=== PATIENT | female | born 1940 | race Caucasian/White ===

== ENCOUNTER 2017-05-04 08:27 | Outpatient (CLI) | payer MEDICARE ==
[2017-05-04] MEDS ORDERED: Iopamidol 370 76% 100 ML VIAL ONE (10:00)
== END 2017-05-04 08:28 | disposition home or self-care (01) ==
LOC: BICCT 08:27
PROVIDERS: ATTEND Radiology Radiation Oncology
DX: C34.90 Malignant neoplasm of unspecified part of unspecified bronchus or lung (principal); J44.9 Chronic obstructive pulmonary disease, unspecified; I25.10 Atherosclerotic heart disease of native coronary artery without angina pectoris; Z98.890 Other specified postprocedural states
CPT/HCPCS: 71260

== ENCOUNTER 2018-05-19 07:25 | Outpatient (CLI) | payer MEDICARE ==
--- NOTE | 2018-05-19 09:37 | CT ---
CT OF THE CHEST WITH CONTRAST: Date: 05/19/18 COMPARISON: 05/04/17, 08/26/14. HISTORY: Lung cancer status post radiation therapy. Restaging exam. TECHNIQUE: Multiple contiguous axial images were obtained in a CT of the chest with contrast. Coronal reformats were performed. FINDINGS: Emphysematous changes are seen in the lungs. There is scarring in the right lung with associated volu me loss. There is right apical thickening. When compared to the prior examination, the apical thicken ing may have slightly worsened. This measures 1.8 cm in thickness. This is definitely increased in ickness compared to the exam from 2015. A calcified granuloma is seen in the left lung base. No suspicious noncalcified nodules are seen. The heart is normal in size. The patient is status post CABG. No hilar or mediastinal lymphadenopathy are seen. Degenerative changes are seen in the spine. The kidneys are lobulated in appearance. The patient is s tatus post cholecystectomy. The other visualized subdiaphragmatic structures are unremarkable. IMPRESSION: Slight increased apical thickening in the right lung apex. This may represent post radiation therapy change. Recurrent disease in the right apex cannot be entirely excluded. A PET CT may be necessary to evaluate for hypermetabolic activity in this region. POS: KENYA
[2018-05-19] MEDS ORDERED: ISOVUE-370 76%-LOCM 1 ML ONE (13:36)
== END 2018-05-19 07:26 | disposition home or self-care (01) ==
LOC: BICCT 07:25
PROVIDERS: ATTEND Radiology Radiation Oncology
DX: C34.90 Malignant neoplasm of unspecified part of unspecified bronchus or lung (principal); Z92.3 Personal history of irradiation
CPT/HCPCS: 71260; 82565; Q9966

== ENCOUNTER 2019-06-26 07:31 | Outpatient (CLI) | payer MEDICARE ==
--- NOTE | 2019-06-26 10:36 | CT ---
CT CHEST WITH IV COTNRAST: DATE: 06/26/2019. PROVIDED CLINICAL HISTORY: History of lung cancer. FINDINGS: Comparison 05/19/2018. The heart, pericardium, and great vessels demonstrate no significant interval change with respect to prior. There is no evidence for thoracic lymph node enlargement. Right apical pleural parenchymal opacity appears not significantly changed with respect to prior stud y. There has been interval development of a lingular pulmonary nodule measuring about 1.4 x 1.1 cm i n greatest transverse dimensions. Central lobular emphysematous changes are again seen. Scattered a reas of ground-glass attenuation are noted, primarily within the superior segments of both lower lobe s. Probable secretions noted within the right main bronchus. The airway appears of normal caliber and o therwise patent. There is no pleural fluid or pneumothorax apparent. The visualized portions of the upper abdomen appear unchanged with respect to the prior study. The osseous structures demonstrate no concerning lytic or blastic lesions. IMPRESSION: 1. Interval development of 1.4 cm lingular pulmonary nodule suspicious for malignancy. 2. Apparent ground-glass attenuation involving superior segments of each lower lobe. This could ref lect an infectious or inflammatory pneumonitis. Mosaic perfusion could also produce this appearance. Similar changes were seen on the prior CT examination, favoring mosaic perfusion. 3. No additional significant interval change with respect to the prior examination is apparent. POS: TISH
[2019-06-26] MEDS ORDERED: Iopamidol-370 76% 500 ML 1 ML ONE (11:49)
== END 2019-06-26 07:32 | disposition home or self-care (01) ==
LOC: BICCT 07:31
PROVIDERS: ATTEND Radiology Radiation Oncology
DX: C34.90 Malignant neoplasm of unspecified part of unspecified bronchus or lung (principal); C77.1 Secondary and unspecified malignant neoplasm of intrathoracic lymph nodes; R91.1 Solitary pulmonary nodule
CPT/HCPCS: 71260; 82565

== ENCOUNTER 2019-09-28 07:31 | Outpatient (CLI) | payer MEDICARE ==
--- NOTE | 2019-09-28 09:57 | CT ---
CT OF THE THORAX WITH IV CONTRAST: INDICATION: Followup pulmonary nodule. COMPARISON: CT of the thorax dated 06/26/2019, 05/19/2018, and 05/14/2017. FINDINGS: The pleural parenchymal scarring involving the right lung apex is largely stable with associated trac tion bronchiectasis. Severe emphysema is similar-appearing. The irregular, semisolid pulmonary nodu le within the anterior aspect of the lingula is relatively stable in size to the most recent comparis on dated 06/26/2019. The pulmonary nodule on image 47 of series 2 measures 1.5 x 1.1 cm where previou sly it measured 1.4 x 1.1 cm. The areas of ground-glass opacity involving the superior segment of th e right and left lower lobes is relatively stable. No new pulmonary nodule is identified. There is a calcified granuloma of the left lower lobe. No pleural effusion is evident. Mild ectasia of the a scending aorta is similar-appearing measuring 3.5 cm. Post CABG change is similar-appearing. There is a 1.1 cm right tracheobronchial lymph node that is relatively stable. The visualized upper abdome n reveals no acute abnormality. There are stable ununited right lateral 6th and 7th rib fractures. There is likely post-radiation os teitis involving the right upper chest wall. There is diffuse osteopenia. There is scattered degene rative change. Small sclerotic lesion involving T1 appears similar-appearing. IMPRESSION: 1. Stable lingular semisolid pulmonary nodule. This nodule has progressed in size over the comparis on examinations but is relatively stable since the most recent 3 months ago. However, this lesion re sylvia concerning for a slowly evolving malignancy. PET CT is recommended for additional characteriza tion. 2. Persistent ground-glass opacities within the superior segment of both upper lobes and a backgroun d of severe emphysema is suspicious for changes of bronchiolitis and a mild pneumonitis. 3. Stable pleural parenchymal scarring of the right lung apex with associated traction bronchiectasi s. 4. Findings of prior granulomatous disease. 5. Stable sclerotic lesion of the T1 vertebral level most suspicious for a bone island. POS: BH
[2019-09-28] MEDS ORDERED: Iopamidol-370 76% 500 ML 1 ML ONE (11:31)
== END 2019-09-28 07:32 | disposition home or self-care (01) ==
LOC: BICCT 07:31
PROVIDERS: ATTEND Radiology Radiation Oncology
DX: R91.1 Solitary pulmonary nodule (principal); Z85.118 Personal history of other malignant neoplasm of bronchus and lung; J98.4 Other disorders of lung; M89.9 Disorder of bone, unspecified
CPT/HCPCS: 71260; 82565

== ENCOUNTER 2020-02-07 07:33 | Outpatient (CLI) | payer MEDICARE ==
--- NOTE | 2020-02-07 10:46 | CT ---
CT OF THE CHEST WITHOUT CONTRAST: Date: 02/07/2020 HISTORY: History of lung cancer. Status post removal of part of the right lung and radiation therapy. History of breast cancer and bilateral mastectomy. Developing left pulmonary nodule. COMPARISON: CT chest dated 09/28/2019, 06/26/2019, and 05/19/2018. TECHNIQUE: Multiple contiguous axial images were obtained in a CT of the chest without contrast. Sagittal and co eden reformats were performed. FINDINGS: The heart is normal in size. Calcifications are seen in the aorta and coronal arteries. The patient i s status post CABG. There is a slightly prominent pretracheal lymph node measuring 1.2 cm in short ax is. This is stable compared to the prior examination. Calcified left hilar and mediastinal lymph node s are seen. Emphysematous changes are seen in the lungs. There is stable scarring in the right apex with peripher al pleural thickening. These findings in the right apex remain stable compared to exams dating back 2018 and may represent post radiation therapy and postsurgical change. There is an enlarging nodule in the lingula. This currently measures 1.4 x 1.2 x 1.5 cm in size. This nodule was initially a semisolid nodule, but now has become more solid in appearance. There are calc ified granulomas in the bilateral lower lobes. No pneumothorax or pleural effusions are seen. The patient is status post cholecystectomy. The kidneys are lobulated in appearance. The other visual ized subdiaphragmatic structures are unremarkable. Degenerative changes are seen in the spine. There are remote right rib fractures and changes in the r ibs in the right apex which may represent post radiation therapy change. The patient is status post b ilateral mastectomy. IMPRESSION: 1. Continued enlargement of lingular nodule. This initially was semisolid and now has become more so lid in appearance. This is suspicious for malignancy. A PET/CT should be performed to evaluate for hy permetabolic activity. 2. Stable changes in the right lung apex likely represent postsurgical and post radiation therapy ch anges. 3. Slightly prominent pretracheal lymph node remains stable. POS: EAA
== END 2020-02-07 07:34 | disposition home or self-care (01) ==
LOC: BICCT 07:33
PROVIDERS: ATTEND Radiology Radiation Oncology
DX: R91.1 Solitary pulmonary nodule (principal); R59.0 Localized enlarged lymph nodes; Z85.118 Personal history of other malignant neoplasm of bronchus and lung
CPT/HCPCS: 71250

== ENCOUNTER 2020-03-20 07:31 | Outpatient (CLI) | payer MEDICARE ==
--- NOTE | 2020-03-20 09:45 | PET ---
Radionucleotide PET scan with CT attenuation correction HISTORY: Right lung cancer. Left lung nodule. COMPARISON: CT chest 02/07/2020. PET scan 01/30/2013. FINDINGS: Increased radiotracer uptake associated with the soft tissue density nodule at the anterior aspect of the left upper lobe shows max SUV 12.1. The nodule has enlarged slightly since the most recent CT, measuring up to 1.6 cm x 1.0 cm greatest diameters on the axial images. No pathologic activity is associated with the precarinal lymph node that is upper limits of normal in size. Slightly increased uptake associated with the posterior lymphoid tissue immediately superior to the l eft side of the larynx is noted without focal mass. Likely reactive. No distant foci of pathologic radiotracer uptake. Nondiagnostic CT attenuation correction images show scarring at the lateral aspect of the right lung apex to be stable. There is fusiform ectasia of the lower abdominal aorta measuring up to 2.8 cm. Calcified fibroids noted within the uterus. IMPRESSION : Enlarging left upper lobe nodule is hypermetabolic, consistent with neoplasm. No evidence of mediasti nal lymph node involvement or distant metastasis. The nodule would be amenable to percutaneous biopsy if needed.
== END 2020-03-20 07:32 | disposition home or self-care (01) ==
LOC: PET 07:31
PROVIDERS: ATTEND Internal Medicine Critical Care Medicine
DX: C34.90 Malignant neoplasm of unspecified part of unspecified bronchus or lung (principal); R91.1 Solitary pulmonary nodule
CPT/HCPCS: 78815; A9552

== ENCOUNTER 2020-04-30 22:20 | Inpatient (IN) | payer MEDICARE ==
[2020-05-01] MEDS ORDERED: guaiFENesin ER 600 MG TAB PO SCH (02:30)
[2020-05-01] MEDS ORDERED: Ondansetron PF 4 MG/2 ML Vial IVP PRN (03:02)
[2020-05-01] MEDS ORDERED: Ondansetron ODT 4 MG TAB PO PRN (03:02)
[2020-05-01] MEDS ORDERED: Acetaminophen 325 MG TAB PO PRN (03:02)
[2020-05-01] MEDS ORDERED: HYDROcodone/Acetaminophen 5/325 mg Tablet PO PRN (03:02)
[2020-05-01 04:54] LABS: #Lymphocytes 0.4 thou/uL (1.20-3.40); #Monocytes 0.1 thou/uL (0.11-0.59); #Neutrophils 3.1 thou/uL (1.40-6.50); %Eosinophils 0.7 % (0.0-10.0); %Monocytes 1.4 % (0.0-10.0); %Neutrophils 85.8 % (42.0-75.0); Hemoglobin 16.6 g/dL (12.0-16.0); Mean Corpuscular HGB CONC 32.6 g/dL (32.0-36.0); Mean Corpuscular Hemoglobin 32.8 pg (27.0-31.0); Mean Platelet Volume 7.9 fL (7.4-10.4); Platelet Count 229 thou/uL (130-400); RBC Distribution Width 12.6 % (11.5-14.5); Red Blood Cell (RBC) Count 5.06 mill/uL (4.20-5.40); White Blood Cell (WBC) Count 3.6 thou/uL (4.8-10.8)
[2020-05-01 05:13] LABS: Anion Gap 16 mmol/L (10-20); BUN (Urea Nitrogen) 16 mg/dL (9.8-20.1); Calc. Creatinine Clearance 41 mL/min (70-130); Carbon Dioxide 23 mmol/L (23-31); Chloride 98 mmol/L (98-107); Glucose 122 mg/dL (83-110); Potassium 4.4 mmol/L (3.5-5.1); Sodium 133 mmol/L (136-145)
[2020-05-01] MEDS: Enoxaparin Sodium 40 MG/0.4 ML SYRINGE SC SCH (11:16)
[2020-05-01] MEDS: traMADol HCl 50 MG TAB PO PRN ×2 (11:17→21:41)
[2020-05-01] MEDS: Gabapentin 300 MG CAP PO SCH ×2 (11:25→21:43)
[2020-05-01] MEDS ORDERED: Rivaroxaban 15 MG TAB PO SCH (17:00)
[2020-05-01] MEDS: Albuterol 200 PUFF (6.7GM INHALER) INH SCH (18:30)
[2020-05-01] MEDS: Budesonide 0.5 MG/2 ML NEB NEB SCH (19:28)
[2020-05-01] MEDS ORDERED: Non-Formulary Item 1 EACH (Albuterol Sulfate [Proair Digihaler] 90 MCG Aer.Pw.Bas) IH SCH (21:00)
[2020-05-02] MEDS: Albuterol 200 PUFF (6.7GM INHALER) INH SCH ×2 (07:15→19:44)
[2020-05-02] MEDS: Budesonide 0.5 MG/2 ML NEB NEB SCH ×2 (07:15→19:33)
[2020-05-02 08:06] VITALS: BMI 23.9
[2020-05-02] MEDS: Aspirin 81 mg Enteric Coated Tablet PO SCH (09:00)
[2020-05-02] MEDS ORDERED: Levothyroxine Sodium 25 MCG TAB PO SCH (09:00)
[2020-05-02] MEDS: Gabapentin 300 MG CAP PO SCH ×2 (09:01→20:59)
[2020-05-02] MEDS: traMADol HCl 50 MG TAB PO PRN ×2 (09:02→21:02)
[2020-05-02] MEDS: Enoxaparin Sodium 40 MG/0.4 ML SYRINGE SC SCH (09:03)
[2020-05-02] MEDS ORDERED: Clopidogrel Bisulfate 75 MG TAB PO SCH (19:45)
[2020-05-03] MEDS: Levothyroxine Sodium 25 MCG TAB PO SCH (05:11)
[2020-05-03] MEDS: Budesonide 0.5 MG/2 ML NEB NEB SCH ×2 (08:07→19:36)
[2020-05-03] MEDS: Albuterol 200 PUFF (6.7GM INHALER) INH SCH ×2 (08:07→19:38)
[2020-05-03] MEDS ORDERED: Clopidogrel Bisulfate 75 MG TAB PO SCH ×2 (09:00→19:15)
[2020-05-03 09:20] LABS: #Eosinphils 0.3 thou/uL (0.0-0.7); #Lymphocytes 1.1 thou/uL (1.20-3.40); #Monocytes 0.7 thou/uL (0.11-0.59); #Neutrophils 3.9 thou/uL (1.40-6.50); %Basophils 0.8 % (0.0-1.0); %Eosinophils 5.2 % (0.0-10.0); %Lymphocytes 18.8 % (21.0-51.0); %Monocytes 11.5 % (0.0-10.0); %Neutrophils 63.7 % (42.0-75.0); Hemoglobin 17.6 g/dL (12.0-16.0); Mean Corpuscular HGB CONC 33.3 g/dL (32.0-36.0); Mean Corpuscular Hemoglobin 33.5 pg (27.0-31.0); Mean Platelet Volume 8.2 fL (7.4-10.4); Platelet Count 223 thou/uL (130-400); RBC Distribution Width 12.7 % (11.5-14.5); Red Blood Cell (RBC) Count 5.24 mill/uL (4.20-5.40); White Blood Cell (WBC) Count 6.1 thou/uL (4.8-10.8)
[2020-05-03 09:27] LABS: Anion Gap 16 mmol/L (10-20); BUN (Urea Nitrogen) 20 mg/dL (9.8-20.1); Calc. Creatinine Clearance 38 mL/min (70-130); Calcium 9.2 mg/dL (7.8-10.44); Carbon Dioxide 27 mmol/L (23-31); Chloride 98 mmol/L (98-107); Glucose 90 mg/dL (83-110); Potassium 4.1 mmol/L (3.5-5.1); Sodium 137 mmol/L (136-145)
[2020-05-03] MEDS: traMADol HCl 50 MG TAB PO PRN ×2 (09:35→20:55)
[2020-05-03] MEDS: Aspirin 81 mg Enteric Coated Tablet PO SCH (09:36)
[2020-05-03] MEDS: Gabapentin 300 MG CAP PO SCH ×2 (09:36→20:54)
[2020-05-03] MEDS: Enoxaparin Sodium 40 MG/0.4 ML SYRINGE SC SCH (09:38)
[2020-05-03] MEDS ORDERED: Cefdinir 300 MG CAP PO SCH (13:15)
[2020-05-03] MEDS ORDERED: Aspirin 81 mg Enteric Coated Tablet PO SCH (19:15)
[2020-05-04] MEDS: Levothyroxine Sodium 25 MCG TAB PO SCH (06:00)
[2020-05-04] MEDS: Albuterol 200 PUFF (6.7GM INHALER) INH SCH ×2 (07:28→19:22)
[2020-05-04] MEDS: Budesonide 0.5 MG/2 ML NEB NEB SCH ×2 (07:29→19:27)
[2020-05-04] MEDS ORDERED: Cefdinir 300 MG CAP PO SCH (09:00)
[2020-05-04] MEDS ORDERED: Clopidogrel Bisulfate 75 MG TAB PO SCH (09:00)
[2020-05-04] MEDS ORDERED: Aspirin 81 mg Enteric Coated Tablet PO SCH (09:00)
[2020-05-04] MEDS: Gabapentin 300 MG CAP PO SCH (09:20)
[2020-05-04] MEDS: methylPREDNISolone Sod Succ/PF 125 MG/2 ML VIAL IVP SCH (09:24)
[2020-05-04] MEDS: traMADol HCl 50 MG TAB PO PRN (09:24)
[2020-05-04] MEDS: Enoxaparin Sodium 40 MG/0.4 ML SYRINGE SC SCH ×2 (09:25→09:26)
[2020-05-04 09:41] LABS: Hemoglobin 17.2 g/dL (12.0-16.0); Platelet Count 211 thou/uL (130-400)
[2020-05-04] MEDS ORDERED: diphenhydrAMINE 50 MG/ML VIAL IVP SCH (11:15)
[2020-05-04] MEDS: Clopidogrel Bisulfate 75 MG TAB PO SCH (17:36)
[2020-05-04] MEDS: Aspirin 81 mg Enteric Coated Tablet PO SCH (17:36)
[2020-05-04] MEDS ORDERED: Melatonin 3 MG TAB PO PRN (20:19)
[2020-05-04] MEDS ORDERED: diphenhydrAMINE 25 MG CAP PO SCH (20:30)
[2020-05-04] MEDS: Transdermal Patch Removal TOP SCH (21:42)
[2020-05-05] MEDS ORDERED: Guaifenesin DM 100-10/5 ML UDCUP PO PRN (03:43)
[2020-05-05] MEDS: Levothyroxine Sodium 25 MCG TAB PO SCH (04:57)
[2020-05-05] MEDS: Enoxaparin Sodium 40 MG/0.4 ML SYRINGE SC SCH (08:11)
[2020-05-05] MEDS: Budesonide 0.5 MG/2 ML NEB NEB SCH ×2 (08:14→18:15)
[2020-05-05] MEDS: Albuterol 200 PUFF (6.7GM INHALER) INH SCH ×2 (08:17→18:15)
[2020-05-05] MEDS: methylPREDNISolone Sod Succ/PF 125 MG/2 ML VIAL IVP SCH (09:04)
[2020-05-05] MEDS ORDERED: traMADol HCl 50 MG TAB PO PRN (09:15)
[2020-05-05] MEDS: Gabapentin 300 MG CAP PO SCH ×2 (09:31→19:45)
[2020-05-05] MEDS: Lidocaine 5% Patch TD SCH (15:29)
[2020-05-05] MEDS: Clopidogrel Bisulfate 75 MG TAB PO SCH (19:44)
[2020-05-05] MEDS: Aspirin 81 mg Enteric Coated Tablet PO SCH (19:44)
[2020-05-06] MEDS: Transdermal Patch Removal TOP SCH (00:30)
[2020-05-06] MEDS: Levothyroxine Sodium 25 MCG TAB PO SCH (05:26)
[2020-05-06] MEDS: Budesonide 0.5 MG/2 ML NEB NEB SCH (08:07)
[2020-05-06] MEDS: Albuterol 200 PUFF (6.7GM INHALER) INH SCH (08:07)
[2020-05-06 08:43] VITALS: BP 135/70; TEMP 97.4
[2020-05-06] MEDS: Gabapentin 300 MG CAP PO SCH (08:57)
[2020-05-06] MEDS: Enoxaparin Sodium 40 MG/0.4 ML SYRINGE SC SCH (08:58)
[2020-05-06] MEDS: methylPREDNISolone Sod Succ/PF 125 MG/2 ML VIAL IVP SCH (09:01)
[2020-05-06] MEDS: Lidocaine 5% Patch TD SCH (12:38)
== END 2020-05-06 14:20 | disposition home or self-care (01) | DRG 190 ==
LOC: 2NO 22:20 → ONC 05-02 16:50
PROVIDERS: ADMIT Student in an Organized Health Care Education/Training Program; ATTEND Emergency Medicine
DX: J44.1 Chronic obstructive pulmonary disease with (acute) exacerbation (principal); J96.01 Acute respiratory failure with hypoxia; C34.12 Malignant neoplasm of upper lobe, left bronchus or lung; Z20.822 Contact with and (suspected) exposure to COVID-19; I25.10 Atherosclerotic heart disease of native coronary artery without angina pectoris; F17.210 Nicotine dependence, cigarettes, uncomplicated; N18.30 Chronic kidney disease, stage 3 unspecified; I12.9 Hypertensive chronic kidney disease with stage 1 through stage 4 chronic kidney disease, or unspecified chronic kidney disease; I80.8 Phlebitis and thrombophlebitis of other sites; T36.1X5A Adverse effect of cephalosporins and other beta-lactam antibiotics, initial encounter; Z79.899 Other long term (current) drug therapy; Z79.82 Long term (current) use of aspirin; Z79.890 Hormone replacement therapy; Z95.1 Presence of aortocoronary bypass graft; Z79.51 Long term (current) use of inhaled steroids; Z79.01 Long term (current) use of anticoagulants; Z90.13 Acquired absence of bilateral breasts and nipples; Z90.2 Acquired absence of lung [part of]; Z85.3 Personal history of malignant neoplasm of breast
CPT/HCPCS: 36415; 77336; 77386; 77417; 80048; 82565; 85014; 85018; 85025; 85049; 94640; J1200; J1650; J2930; J7620; J7626; Q0163

== ENCOUNTER 2020-11-20 07:28 | Outpatient (CLI) | payer MEDICARE | END 2020-11-20 07:29 | disposition home or self-care (01) | LOC: BICCT 07:28 | PROVIDERS: ATTEND Radiology Radiation Oncology | DX: C34.12 Malignant neoplasm of upper lobe, left bronchus or lung (principal); R91.1 Solitary pulmonary nodule; J98.4 Other disorders of lung; I25.10 Atherosclerotic heart disease of native coronary artery without angina pectoris | CPT/HCPCS: 71260; 82565 ==

== ENCOUNTER 2021-05-22 11:22 | Inpatient (IN) | payer MEDICARE ==
[2021-05-22 12:13] LABS: #Lymphocytes 0.1 thou/uL (1.20-3.40); #Monocytes 1.3 thou/uL (0.11-0.59); #Neutrophils 12.9 thou/uL (1.40-6.50); %Eosinophils 0.2 % (0.0-10.0); %Lymphocytes 0.9 % (21.0-51.0); %Monocytes 8.8 % (0.0-10.0); %Neutrophils 90.1 % (42.0-75.0); Hemoglobin 15.7 g/dL (12.0-16.0); Mean Corpuscular HGB CONC 31.4 g/dL (32.0-36.0); Mean Corpuscular Hemoglobin 31.3 pg (27.0-31.0); Mean Corpuscular Volume 99.7 fL (78.0-98.0); Mean Platelet Volume 7.3 fL (7.4-10.4); Platelet Count 226 thou/uL (130-400); RBC Distribution Width 13.4 % (11.5-14.5); Red Blood Cell (RBC) Count 5.02 mill/uL (4.20-5.40); White Blood Cell (WBC) Count 14.3 thou/uL (4.8-10.8)
[2021-05-22] MEDS ORDERED: Morphine 4 MG/ML VIAL ONE (12:29)
[2021-05-22 12:35] LABS: ALT (SGPT) 30 U/L (8-55); AST (SGOT) 26 U/L (5-34); Albumin 3.5 g/dL (3.4-4.8); Alkaline Phosphatase 69 U/L (40-110); BUN (Urea Nitrogen) 37 mg/dL (9.8-20.1); Bilirubin, Total 1.1 mg/dL (0.2-1.2); Calc. Creatinine Clearance 0 mL/min (70-130); Calcium 9.6 mg/dL (7.8-10.44); Globulin 2.5 g/dL (2.4-3.5); Glucose 105 mg/dL (83-110)
[2021-05-22 12:45] LABS: Anion Gap 17 mmol/L (10-20); Carbon Dioxide 34 mmol/L (23-31); Chloride 88 mmol/L (98-107); Potassium 4.9 mmol/L (3.5-5.1); Sodium 134 mmol/L (136-145)
[2021-05-22] MEDS ORDERED: Ondansetron PF 4 MG/2 ML Vial IVP PRN (17:45)
[2021-05-22] MEDS ORDERED: Ondansetron ODT 4 MG TAB SL PRN (17:45)
[2021-05-22] MEDS ORDERED: Senokot S 8.6-50 MG TAB PO PRN (18:07)
[2021-05-22] MEDS ORDERED: HYDROcodone/Acetaminophen 5/325 mg Tablet PO PRN (18:16)
[2021-05-22] MEDS ORDERED: Albuterol Sulfate 2.5 mg/3 ml Neb NEB PRN (19:03)
[2021-05-22 20:11] LABS: SARS-CoV-2 NAA Rapid Test Not Detected (NotDetected)
[2021-05-22 20:49] VITALS: BMI 30.7
[2021-05-22] MEDS: Enoxaparin Sodium 40 MG/0.4 ML SYRINGE SC SCH (21:55)
[2021-05-22] MEDS: Cefepime 1 GM in Sodium Chloride 0.9% 100 ML IVPB SCH (21:56)
[2021-05-22] MEDS: Sodium Chloride 0.9% 1,000 ML IV SCH (21:57)
[2021-05-22] MEDS: Famotidine 20 MG TAB PO SCH (21:57)
[2021-05-22] MEDS ORDERED: Oxymetazoline HCl 0.05% (30 ML BOT) NS PRN (22:35)
[2021-05-22] MEDS: traMADol HCl 50 MG TAB PO PRN (22:49)
[2021-05-23 05:15] LABS: Bacteria/HPF None Seen HPF (None Seen); Bilirubin Negative (Negative); Blood, Urine Negative (Negative); Clarity Clear (Clear); Glucose, Urine (Dipstick) Normal (Negative); Ketone, Urine Negative (Negative); Leukocyte Negative Leu/uL (Negative); Nitrite Negative (Negative); Protein, Urine (Dipstick) 10 mg/dL (Neg-Trace); RBC/HPF 0-3 HPF (0-3); Specific Gravity, Urine 1.029 (1.002-1.036); Squamous Epithelial 0-3 HPF (0-3); Urobilinogen Normal mg/dL (Less than 2); WBC/HPF 0-3 HPF (0-3)
[2021-05-23 07:19] LABS: BUN (Urea Nitrogen) 38 mg/dL (9.8-20.1); Calc. Creatinine Clearance 73 mL/min (70-130); Calcium 9.1 mg/dL (7.8-10.44); Glucose 106 mg/dL (83-110)
[2021-05-23 07:25] LABS: Hemoglobin 15.4 g/dL (12.0-16.0); Mean Corpuscular HGB CONC 30.9 g/dL (32.0-36.0); Mean Corpuscular Hemoglobin 31.1 pg (27.0-31.0); Mean Platelet Volume 7.8 fL (7.4-10.4); Platelet Count 190 thou/uL (130-400); RBC Distribution Width 13.8 % (11.5-14.5); Red Blood Cell (RBC) Count 4.96 mill/uL (4.20-5.40)
[2021-05-23 07:28] LABS: Anion Gap 16 mmol/L (10-20); Carbon Dioxide 32 mmol/L (23-31); Chloride 93 mmol/L (98-107); Potassium 5.1 mmol/L (3.5-5.1); Sodium 136 mmol/L (136-145)
[2021-05-23] MEDS: Cefepime 1 GM in Sodium Chloride 0.9% 100 ML IVPB SCH ×2 (08:33→19:36)
[2021-05-23] MEDS: Aspirin 81 mg Enteric Coated Tablet PO SCH (08:34)
[2021-05-23] MEDS: Famotidine 20 MG TAB PO SCH (08:34)
[2021-05-23 08:39] LABS: Band 2 % (5-11); MDiff Complete? YES; Macrocytosis SLIGHT = 6-15 cells (100X) (0-5/hpf); Monocytes 6 % (0-10); Neutrophil 92 % (42-75); Platelet Morphology Comment Appears Adequate
[2021-05-23] MEDS: traMADol HCl 50 MG TAB PO PRN ×3 (08:51→19:34)
[2021-05-23] MEDS ORDERED: Morphine 4 MG/ML VIAL ONE (10:26)
[2021-05-23] MEDS ORDERED: Morphine 4 MG/ML VIAL SLOW IVP PRN (11:06)
[2021-05-23] MEDS ORDERED: Magnevist 469MG/ML 20 ML VIAL ONE ×2 (11:48)
[2021-05-23] MEDS: Sodium Chloride 0.9% 1,000 ML IV SCH (14:01)
[2021-05-23] MEDS: Enoxaparin Sodium 40 MG/0.4 ML SYRINGE SC SCH (19:37)
[2021-05-23] MEDS ORDERED: Gabapentin 300 MG CAP PO SCH ×2 (21:00)
[2021-05-23] MEDS ORDERED: Ketorolac Tromethamine 30 MG/ML VIAL IVP SCH (23:00)
[2021-05-24] MEDS: traMADol HCl 50 MG TAB PO PRN ×4 (00:13→16:15)
[2021-05-24 07:09] LABS: #Lymphocytes 0.1 thou/uL (1.20-3.40); #Neutrophils 9.3 thou/uL (1.40-6.50); %Basophils 0.2 % (0.0-1.0); %Eosinophils 0.2 % (0.0-10.0); %Lymphocytes 1.3 % (21.0-51.0); %Monocytes 9.1 % (0.0-10.0); %Neutrophils 89.2 % (42.0-75.0); Hemoglobin 14.6 g/dL (12.0-16.0); Mean Corpuscular HGB CONC 30.9 g/dL (32.0-36.0); Mean Corpuscular Hemoglobin 31.2 pg (27.0-31.0); Platelet Count 148 thou/uL (130-400); RBC Distribution Width 13.8 % (11.5-14.5); Red Blood Cell (RBC) Count 4.68 mill/uL (4.20-5.40); White Blood Cell (WBC) Count 10.4 thou/uL (4.8-10.8)
[2021-05-24 07:28] LABS: Anion Gap 10 mmol/L (10-20); BUN (Urea Nitrogen) 36 mg/dL (9.8-20.1); Calc. Creatinine Clearance 74 mL/min (70-130); Carbon Dioxide 34 mmol/L (23-31); Chloride 96 mmol/L (98-107); Glucose 82 mg/dL (83-110); Potassium 5.3 mmol/L (3.5-5.1); Sodium 135 mmol/L (136-145)
[2021-05-24] MEDS: Cefepime 1 GM in Sodium Chloride 0.9% 100 ML IVPB SCH ×2 (08:33→20:05)
[2021-05-24] MEDS: Gabapentin 300 MG CAP PO SCH ×3 (08:36→20:06)
[2021-05-24] MEDS: Aspirin 81 mg Enteric Coated Tablet PO SCH (08:36)
[2021-05-24] MEDS: Cyclobenzaprine 10 MG TAB PO SCH ×2 (08:43→20:06)
[2021-05-24] MEDS ORDERED: fentaNYL 75 mcg/hour Patch TD SCH (09:00)
[2021-05-24] MEDS: Enoxaparin Sodium 40 MG/0.4 ML SYRINGE SC SCH (20:05)
[2021-05-24] MEDS: Benzonatate 100 MG CAP PO PRN (20:09)
[2021-05-25 06:28] LABS: #Eosinphils 0.2 thou/uL (0.0-0.7); #Lymphocytes 0.2 thou/uL (1.20-3.40); #Monocytes 0.7 thou/uL (0.11-0.59); #Neutrophils 9.8 thou/uL (1.40-6.50); %Basophils 0.1 % (0.0-1.0); %Lymphocytes 1.3 % (21.0-51.0); %Monocytes 6.2 % (0.0-10.0); %Neutrophils 90.3 % (42.0-75.0); Hemoglobin 15.5 g/dL (12.0-16.0); Mean Corpuscular HGB CONC 31.8 g/dL (32.0-36.0); Mean Corpuscular Hemoglobin 32.2 pg (27.0-31.0); Mean Platelet Volume 7.9 fL (7.4-10.4); Platelet Count 124 thou/uL (130-400); RBC Distribution Width 13.7 % (11.5-14.5); Red Blood Cell (RBC) Count 4.81 mill/uL (4.20-5.40); White Blood Cell (WBC) Count 10.8 thou/uL (4.8-10.8)
[2021-05-25 06:51] LABS: Anion Gap 12 mmol/L (10-20); BUN (Urea Nitrogen) 34 mg/dL (9.8-20.1); Calc. Creatinine Clearance 72 mL/min (70-130); Calcium 9.1 mg/dL (7.8-10.44); Carbon Dioxide 36 mmol/L (23-31); Chloride 94 mmol/L (98-107); Glucose 80 mg/dL (83-110); Potassium 4.7 mmol/L (3.5-5.1); Sodium 137 mmol/L (136-145)
[2021-05-25] MEDS: Cyclobenzaprine 10 MG TAB PO SCH (08:43)
[2021-05-25] MEDS: Aspirin 81 mg Enteric Coated Tablet PO SCH ×2 (08:44→09:10)
[2021-05-25] MEDS: Gabapentin 300 MG CAP PO SCH (08:44)
[2021-05-25] MEDS: Cefepime 1 GM in Sodium Chloride 0.9% 100 ML IVPB SCH (08:47)
[2021-05-25] MEDS ORDERED: Magnevist 469MG/ML 20 ML VIAL ONE (09:29)
[2021-05-25] MEDS ORDERED: Gabapentin 100 MG CAP PO SCH (15:00)
[2021-05-25] MEDS ORDERED: Cyclobenzaprine 10 MG TAB PO SCH (16:00)
[2021-05-25] MEDS ORDERED: fentaNYL 50 mcg/hour Patch TD SCH (18:00)
[2021-05-25] MEDS: Enoxaparin Sodium 40 MG/0.4 ML SYRINGE SC SCH (21:42)
[2021-05-26] MEDS: Aspirin 81 mg Enteric Coated Tablet PO SCH (08:33)
[2021-05-26] MEDS: Enoxaparin Sodium 40 MG/0.4 ML SYRINGE SC SCH (21:00)
[2021-05-26] MEDS: Acetaminophen 325 MG TAB PO PRN (21:08)
[2021-05-26] MEDS: Benzonatate 100 MG CAP PO PRN (21:08)
[2021-05-27] MEDS: Aspirin 81 mg Enteric Coated Tablet PO SCH (08:26)
[2021-05-27] MEDS: Acetaminophen 325 MG TAB PO PRN ×2 (11:17→16:53)
[2021-05-27] MEDS: Enoxaparin Sodium 40 MG/0.4 ML SYRINGE SC SCH (21:29)
[2021-05-27] MEDS ORDERED: Melatonin 3 MG TAB PO PRN (22:37)
[2021-05-27] MEDS ORDERED: hydrOXYzine 10 MG TAB PO PRN (22:37)
[2021-05-28] MEDS: Acetaminophen 325 MG TAB PO PRN ×2 (00:10→23:39)
[2021-05-28] MEDS ORDERED: Lidocaine 5% Patch TD SCH (01:30)
[2021-05-28] MEDS: Aspirin 81 mg Enteric Coated Tablet PO SCH (10:00)
[2021-05-28] MEDS ORDERED: Transdermal Patch Removal TOP SCH (13:30)
[2021-05-28] MEDS: Morphine 4 MG/ML VIAL SLOW IVP PRN ×2 (14:00→20:03)
[2021-05-28] MEDS ORDERED: fentaNYL 75 mcg/hour Patch TD SCH ×2 (15:00→18:00)
[2021-05-28] MEDS: Dexamethasone 4 MG TAB PO SCH (16:53)
[2021-05-28] MEDS: ALPRAZolam 0.25 MG TAB PO PRN ×2 (16:54→23:39)
[2021-05-28] MEDS: Enoxaparin Sodium 40 MG/0.4 ML SYRINGE SC SCH (20:03)
[2021-05-29] MEDS: Aspirin 81 mg Enteric Coated Tablet PO SCH (10:17)
[2021-05-29] MEDS: Dexamethasone 4 MG TAB PO SCH (10:17)
[2021-05-29 15:37] VITALS: BP 124/73; TEMP 97.3
== END 2021-05-29 15:51 | disposition hospice, home (50) | DRG 543 ==
LOC: ERS 11:22 → T4-A 17:49 → OBSVTOIN 17:49
PROVIDERS: ADMIT Family Medicine; ATTEND Internal Medicine
DX: C79.51 Secondary malignant neoplasm of bone (principal); J96.11 Chronic respiratory failure with hypoxia; E87.1 Hypo-osmolality and hyponatremia; E87.3 Alkalosis; J98.11 Atelectasis; C34.92 Malignant neoplasm of unspecified part of left bronchus or lung; Z51.5 Encounter for palliative care; Z20.822 Contact with and (suspected) exposure to COVID-19; Z66 Do not resuscitate; G89.3 Neoplasm related pain (acute) (chronic); I25.10 Atherosclerotic heart disease of native coronary artery without angina pectoris; J44.9 Chronic obstructive pulmonary disease, unspecified; E87.8 Other disorders of electrolyte and fluid balance, not elsewhere classified; I10 Essential (primary) hypertension; G47.00 Insomnia, unspecified; E87.5 Hyperkalemia; Z85.3 Personal history of malignant neoplasm of breast; Z92.3 Personal history of irradiation; Z90.13 Acquired absence of bilateral breasts and nipples; Z99.81 Dependence on supplemental oxygen; Z79.899 Other long term (current) drug therapy; Z79.82 Long term (current) use of aspirin; Z79.51 Long term (current) use of inhaled steroids; Z95.1 Presence of aortocoronary bypass graft; Z90.49 Acquired absence of other specified parts of digestive tract; Z98.49 Cataract extraction status, unspecified eye; Z87.891 Personal history of nicotine dependence; Z51.0 Encounter for antineoplastic radiation therapy
CPT/HCPCS: 36415; 70553; 71045; 72131; 72157; 72158; 77014; 77280; 77290; 77307; 77334; 77412; 80048; 80053; 81001; 85025; 87040; 93005; 93010; 94640; 96374; A9579; J0692; J1650; J1885; J2270; J3490; J7050; J7611; J7620; J8540; U0002